=== PATIENT | male | born 1990 | race Caucasian/White ===

== ENCOUNTER 2021-05-22 10:37 | Emergency (ER) | payer OTHER ==
--- NOTE | 2021-05-22 11:24 | ED Physician Documentation ---
History of Present Illness - Stated complaint Stated Complaint: NECK - Chief complaint Chief Complaint: Back Pain - History obtained from History obtained from: Patient - History of Present Illness Timing: How many days ago (4) Pain level max: 7 Pain level now: 6 - Additonal information Additional information: She is a 30-year-old male who complains of left-sided neck pain. He states he awoke with the pain a few days ago. Has gradually worsened since that time. Worse with movement, better with rest. No relief with Motrin and Tylenol. Does not recall any specific injury. Has not had any recent illnesses. No fevers. No chills. No numbness or tingling. Review of Systems Constitutional: denies: Fever, Chills Respiratory: denies: Cough GI: denies: Abdominal Pain, Nausea, Vomiting, Diarrhea Skin: denies: Rash Musculoskeletal: denies: Back pain Neurologic: denies: Focal weakness, Numbness, Headache, Head injury, LOC PD PAST MEDICAL HISTORY - Past Medical History Past Medical History: Yes Cardiovascular: Hypertension Respiratory: None Neuro: None Endocrine/Autoimmune: None GI: GERD : None HEENT: None Psych: None Musculoskeletal: None Derm: None - Past Surgical History Past Surgical History: Yes HEENT: Tonsil/Adenoidectomy - Present Medications Home Medications: Ambulatory Orders Medication Instructions Recorded Confirmed HYDROcod/ACETAM 5/325 [[place] 5/325] 1 - 2 ea PO Q6H PRN #12 tablet 05/22/21 Lisinopril [Zestril] 40 mg PO DAILY 05/22/21 05/22/21 Meloxicam [Mobic] 15 mg PO DAILY PRN #20 tablet 05/22/21 Pantoprazole [Protonix] 40 mg PO DAILY 05/22/21 05/22/21 methocarbamoL [Robaxin] 500 mg PO Q6H PRN #20 tablet 05/22/21 - Allergies Allergies/Adverse Reactions: Allergies Allergy/AdvReac Type Severity Reaction Status Date / Time No Known Drug Allergies Allergy Verified 05/22/21 10:41 - Social History Does the pt smoke?: No Smoking Status: Never smoker Does the pt drink ETOH?: No Does the pt have substance abuse?: No - Immunizations Immunizations are current?: Yes PD ED PE NORMAL - Vitals Vital signs reviewed: Yes - General General: Alert and oriented X 3, No acute distress, Well developed/nourished - HEENT HEENT: Atraumatic, PERRL, EOMI, Moist mucous membranes - Neck Neck: Supple, no meningeal sign, No bruit, Other (Tender to palpation paraspinal left cervical area. Reproduces his pain. Limited to about 30 degrees of rotation to the left and 30 degrees of rotation to the right. 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 Will place on muscle relaxants and pain medication for home and have him follow-up with his doctor for further care. We will continue gentle stretching at home. I am prescribing a short course of short-acting opioid pain medication for this patient. 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 I have discussed that the opioids are for short term therapy only, and will not be refilled from the ED. patient counseled regarding signs and symptoms for which I believe and urgent re-evaluation would be necessary. Patient with good understanding of and agreement to plan and is comfortable going home at this time This document was made in part using voice recognition software. While efforts are made to proofread this document, sound alike and grammatical errors may occur. Departure - Departure Disposition: 01 Home, Self Care Clinical Impression: Wry neck Condition: Good Instructions: ED Spasm Neck No Injury Follow-Up: DURAN ROBERTO MD [Primary Care Provider] - Within 1 week Prescriptions: Meloxicam [Mobic] 15 mg PO DAILY PRN #20 tablet PRN Reason: pain HYDROcod/ACETAM 5/325 [[place] 5/325] 1 - 2 ea PO Q6H PRN #12 tablet PRN Reason: Pain methocarbamoL [Robaxin] 500 mg PO Q6H PRN #20 tablet PRN Reason: muscle spasm Comments: Please follow-up with your doctor for further care. Your prescriptions were sent to [facility] in [place]. Do not drive or operate heavy machinery while taking the hydrocodone or Robaxin. Continue gentle stretching at home. This should improve over the next 1 to 2 days. I am prescribing a short course of narcotic pain medication for you. These are potentially dangerous and addictive medications that should be used carefully. These medications may constipate you. Take an awwq-rnr-cljrxoh stool softener (docusate) twice daily with plenty of water while taking these medications. If you go 24 hours without a bowel movement, take rnqm-fdw-hkhoukz miralax, per package instructions. Do not drink or drive while taking these medications. If you received narcotic or sedating medications while in the emergency department, do not drive for 24 hours. Store this medication in a safe, secure place and out of reach of children. It is a violation of federal law to give or sell this medication to another person or to use in a manner other than prescribed. The ED will not refill narcotic prescriptions, including prescriptions lost or stolen. To dispose of unwanted medications: 1. [facility] [address] in [place] has a medication drop box. They accept prescription medications (in pill form) Sunday through Sunday 9:00 a.m. to 5:00 p.m. 2. The [facility] accepts prescription medications (in pill form only) for disposal year round. Call for more information. 3. Contact the [facility] for the next [facility] sponsored prescription drug collection event. , [phone], or [phone];
[2021-05-22 11:46] VITALS: BP 125/73
== END 2021-05-22 11:46 | disposition home or self-care (01) ==
LOC: ED 10:37
DX: M43.6 Torticollis (principal); I10 Essential (primary) hypertension
CPT/HCPCS: 99283; 99284

== ENCOUNTER 2022-05-11 01:37 | Emergency (ER) | payer OTHER ==
[2022-05-11 02:01] LABS: BASOPHILS % (AUTO) 0.6 %; EOSINOPHILS # (AUTO) 0.2 10^3/uL (0.0-0.7); EOSINOPHILS % (AUTO) 2.9 %; HCT - HEMATOCRIT 45.8 % (42.0-52.0); HGB - HEMOGLOBIN 14.9 g/dL (14.0-18.0); LYMPHOCYTES # (AUTO) 2.2 10^3/uL (1.5-3.5); LYMPHOCYTES % (AUTO) 33.1 %; MEAN CORPUSCULAR HEMOGLOBIN 27.9 pg (27.0-31.0); MEAN CORPUSCULAR HGB CONC 32.5 g/dL (32.0-36.0); MEAN CORPUSCULAR VOLUME 85.8 fL (80.0-94.0); MEAN PLATELET VOLUME 9.2 fL (7.4-11.4); MONOCYTES # (AUTO) 0.8 10^3/uL (0.0-1.0); MONOCYTES % (AUTO) 12.7 %; NEUTROPHILS # (AUTO) 3.3 10^3/uL (1.5-6.6); NEUTROPHILS % (AUTO) 50.4 %; PLT - PLATELET COUNT 225 10^3/uL (130-450); RED BLOOD COUNT 5.34 10^6/uL (4.70-6.10); WHITE BLOOD COUNT 6.6 x10^3/uL (4.8-10.8)
--- OUTSIDE RECORDS SUMMARY | 2022-05-11 02:06 | EXTERNAL MEDICAL SUMMARY RPT | Continuity of Care Document ---
:1990 Author Organization [facility] Address [address] [place] [address] Phone Care Team Providers Name Role Phone Unavailable Unavailable Unavailable Hardik Foster Pa-C Unavailable Unavailable Allergies No information. Encounters No information. Functional Status No information. Immunizations No information. Medications date description facility +0000 lisinopril All [id number]+0000 lisinopril All [id number]+0000 lisinopril All [id number]+0000 pantoprazole All [id number]+0000 lisinopril All [id number]+0000 pantoprazole All [id number]+0000 pantoprazole All [id number]+0000 pantoprazole All Problems No information. Procedures date description facility +0000 Visit Code Hold All [id number]+0000 POC STREP TEST All [id number]+0000 COVID, FLU A+B Antigen (In Clinic Free Test) All Results/Labs No information. Social History date description facility +0000 Unknown if ever smoked All Vital Signs date measurement value units [id number]+0000 BMI BMI 27.84 kg/m2 47879600712219+0000 BP_diastolic BP_diastolic 93 mmHg 48083295762502+0000 BP_systolic BP_systolic 142 mmHg 57021234336321+0000 heart_rate heart_rate 81 /min 94741956522154+0000 height_metric height_metric 198.12 cm 15271809289076+0000 height_standard height_standard 78 in 48287853306337+0000 respiration_rate respiration_rate 22 /min 87730643443679+0000 temperature_metric temperature_metric 37.17 C 77811812277460+0000 temperature_standard temperature_standard 9 8.9 F 54356866077309+0000 weight_metric weight_metric 108.86 kg 16235996417628+0000 weight_standard weight_standard 240 lb
[2022-05-11 02:13] LABS: ALBUMIN 4.4 g/dL (3.2-5.5); ALBUMIN/GLOBULIN RATIO 1.2 (1.0-2.2); BILIRUBIN,TOTAL 0.8 mg/dL (0.2-1.0); CALCIUM 8.8 mg/dL (8.5-10.3); CREATININE 0.8 mg/dL (0.6-1.2); POTASSIUM 3.7 mmol/L (3.5-5.0); TOTAL PROTEIN 8.1 g/dL (6.7-8.2)
--- NOTE | 2022-05-11 03:17 | ED Physician Documentation ---
PD HPI ABD PAIN - Stated complaint Stated Complaint: L SIDE PX - Chief complaint Chief Complaint: Abd Pain - History obtained from History obtained from: Patient - History of Present Illness Timing - onset: Enter time (00:30), Today Timing - details: Abrupt onset Pain level now: 8 Quality: Pain Location: LUQ Radiation: Left flank Improved by: Other (no ameliorating factors) Worsened by: Other ( no exacerbating factors) Associated symptoms: No: Fever, Nausea, Vomiting, Diarrhea, Constipation Similar symptoms before: Has not had sx before Recently seen: Not recently seen - Additional information Additional information: woke approximately 1 hour 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 Pain waxes and wanes without apparent exacerbating nor ameliorating factors. Denies h/o similar symptoms. Denies fever. Went to sleep only a few hours earlier (approximately 10 PM) asymptomatic. Review of Systems Constitutional: reports: Sweats. denies: Fever, Chills Cardiac: reports: Reviewed and negative Respiratory: reports: Reviewed and negative GI: reports: Abdominal Pain. denies: Abdominal Swelling, Nausea, Vomiting, Constipation, Diarrhea : denies: Dysuria, Frequency, Hematuria Skin: denies: Rash PD PAST MEDICAL HISTORY - Past Medical History Past Medical History: Yes Cardiovascular: Hypertension Respiratory: None Neuro: None Endocrine/Autoimmune: None GI: GERD : None HEENT: None Psych: None Musculoskeletal: None Derm: None - Past Surgical History Past Surgical History: Yes HEENT: Tonsil/Adenoidectomy - Present Medications Home Medications: Ambulatory Orders Medication Instructions Recorded Confirmed Lisinopril [Zestril] 40 mg PO DAILY 05/22/21 05/11/22 Pantoprazole [Protonix] 40 mg PO DAILY 05/22/21 05/11/22 - Allergies Allergies/Adverse Reactions: Allergies Allergy/AdvReac Type Severity Reaction Status Date / Time No Known Drug Allergies Allergy Verified 05/11/22 01:47 - Social History Does the pt smoke?: No Smoking Status: Never smoker Does the pt drink ETOH?: No Does the pt have substance abuse?: No - Immunizations Immunizations are current?: Yes - POLST Patient has POLST: No PD ED PE NORMAL - Vitals Vital signs reviewed: Yes - General General: Alert and oriented X 3, Well developed/nourished, Other (obvious painful distress) - Cardiac Cardiac: RRR, No murmur - Respiratory Respiratory: No respiratory distress, Clear bilaterally - Abdomen Abdomen: Soft, Non distended, Other (mild TTP LLQ without guarding or rebound) - Back Back: No CVA TTP - Derm Derm: No rash Results - Vitals Vitals: Vital Signs - 24 hr 05/11/22 05/11/22 05/11/22 01:40 04:02 05:15 Temperature 36.3 C L 37.1 C 36.7 C Heart Rate 84 87 74 Respiratory 18 18 16 Rate Blood Pressure 127/91 H 118/78 122/68 O2 Saturation 98 98 100 Oxygen O2 Source Room air - Labs Labs: Laboratory Tests 05/11/22 05/11/22 05/11/22 01:56 01:56 03:32 WBC 6.6 RBC 5.34 Hgb 14.9 Hct 45.8 MCV 85.8 MCH 27.9 MCHC 32.5 RDW 13.0 Plt Count 225 MPV 9.2 Neut # (Auto) 3.3 Lymph # (Auto) 2.2 Gordon # (Auto) 0.8 Eos # (Auto) 0.2 Baso # (Auto) 0.0 Absolute Nucleated RBC 0.00 Nucleated RBC % 0.0 Sodium 137 Potassium 3.7 Chloride 100 L Carbon Dioxide 26 Anion Gap 11.0 BUN 12 Creatinine 0.8 Estimated GFR (MDRD) 112 Glucose 120 H Calcium 8.8 Total Bilirubin 0.8 AST 29 ALT 51 Alkaline Phosphatase 76 Total Protein 8.1 Albumin 4.4 Globulin 3.7 Albumin/Globulin Ratio 1.2 Lipase 26 Urine Color YELLOW Urine Clarity CLEAR Urine pH 5.5 Ur Specific [place] >=1.030 H Urine Protein NEGATIVE Urine Glucose (UA) NEGATIVE Urine Ketones NEGATIVE Urine Occult Blood NEGATIVE Urine Nitrite NEGATIVE Urine Bilirubin NEGATIVE Urine Urobilinogen 0.2 (NORMAL) Ur Leukocyte Esterase NEGATIVE Ur Microscopic Review NOT INDICATED Urine Culture Comments NOT INDICATED - Rads (name of study) CT A/P Radiology: Prelim report reviewed, See rad report PD MEDICAL DECISION MAKING - ED course Complexity details: reviewed results, re-evaluated patient, considered differential, d/w patient ED course: normal CBC, ER abdominal panel, and UA. CT A/P unremarkable (incidental note of small left fat-containing inguinal hernia and elevated left HD). He is given IV toradol and on reevaluation he is in NAD. Results reviewed with patient, lack of apparent diagnosis/cause of symptoms is discussed. He is comfortable with d/c at this time. Return precautions were reviewed. Departure - Departure Disposition: 01 Home, Self Care Clinical Impression: Abdominal pain Condition: Good Instructions: ED Abdominal Pain Unkn Cause Male Comments: The results of tonight's tests are unremarkable. The cause of your symptoms is unclear at this time. Follow up with your primary care provider within 1 week fore reevaluation. Discharge Date/Time: 05/11/22 05:19
[2022-05-11] MEDS ORDERED: KETOROLAC 30 MG/ML VIAL IVP STA (03:24)
[2022-05-11 03:37] LABS: BILIRUBIN,URINE NEGATIVE (NEGATIVE); CLARITY,URINE CLEAR (CLEAR); GLUCOSE, URINE (UA) NEGATIVE (NEGATIVE); KETONES,URINE (UA) NEGATIVE (NEGATIVE); LEUKOCYTE ESTERASE, URINE NEGATIVE (NEGATIVE); NITRITE,URINE NEGATIVE (NEGATIVE); OCCULT BLOOD,URINE NEGATIVE (NEGATIVE); PH,URINE 5.5 PH (5.0-7.5); PROTEIN,URINE NEGATIVE (NEGATIVE); UROBILINOGEN,URINE 0.2 (NORMAL) E.U./dL (NORMAL)
[2022-05-11 05:19] VITALS: BP 122/68
--- NOTE | 2022-05-11 08:09 | CT Report ---
PROCEDURE: ABDOMEN/PELVIS WO INDICATIONS: left flank pain TECHNIQUE: Noncontrast 5 mm thick sections acquired from the diaphragms to the symphysis. 5 mm coronal and sagi ttal reformats were then performed. For radiation dose reduction, the following was used: automated exposure control, adjustment of mA and/or kV according to patient size. COMPARISON: None. FINDINGS: Image quality: Excellent. ABDOMEN: Lung bases: Lung bases are clear. Heart size is normal. Elevation of the left hemidiaphragm. Solid organs: Liver and spleen are normal in size. Gallbladder is unremarkable without calcified ga llstones. Pancreas is normal in contours. No adrenal nodules. Kidneys are normal in size, without hydronephrosis or nephrolithiasis. Peritoneum and bowel: Unenhanced bowel loops demonstrate normal wall thickness and caliber. No free fluid or air. Nodes and vessels: No retroperitoneal or mesenteric adenopathy by size criteria. Aorta and inferior vena cava are normal in caliber. Miscellaneous: No ventral hernias. PELVIS: Genitourinary: Bladder wall thickness is normal. Miscellaneous: Small fat-containing left inguinal hernia. No inguinal adenopathy. Bones: No suspicious bony lesions. No vertebral body compression fractures. IMPRESSION: 1. No renal stones, ureteral stones, or hydronephrosis. 2. No evidence acute abdominal process. 3. Incidental note made of elevation of the left hemidiaphragm. Findings are concordant with preliminary interpretation provided by [facility]. Reviewed by: Ren Godfrey MD on 05/11/2022 8:07 AM PST Approved by: Ren Godfrey MD on 05/11/2022 8:07 AM PST Station ID: [id number]
== END 2022-05-11 05:19 | disposition home or self-care (01) ==
LOC: ED 01:37
DX: R10.12 Left upper quadrant pain (principal); R10.32 Left lower quadrant pain; K40.90 Unilateral inguinal hernia, without obstruction or gangrene, not specified as recurrent; K21.9 Gastro-esophageal reflux disease without esophagitis; I10 Essential (primary) hypertension
CPT/HCPCS: 36415; 80053; 81001; 81003; 83690; 85025; 87086; 96374; 99282